=== PATIENT | male | born 1940 | race Two or more races ===

== ENCOUNTER 2018-06-27 16:00 | Emergency (ER) | payer OTHER ==
[~2018-06-27] VITALS: Ht 172.7 cm; Wt 67.6 kg
[~2018-06-27 16:00] MED LIST: BONIVA; PROZAC20 MG PO; SYNTHROID75 MCG PO
[2018-06-27] MEDS ORDERED: SIMVASTATIN20 MG PO (16:15)
[2018-06-27] MEDS ORDERED: NEURIN SL PO (16:15)
[2018-06-27] MEDS ORDERED: PLAVIX75 MG PO (16:16)
[2018-06-27] MEDS ORDERED: ASA81 MG PO (16:16)
== END 2018-06-27 19:07 | disposition home or self-care (01) ==
LOC: ER 16:00
DX: R42 Dizziness and giddiness (principal)

== ENCOUNTER 2023-03-15 10:53 | Emergency (ER) | payer OTHER ==
[~2023-03-15] VITALS: Ht 152.4 cm; Wt 63.5 kg
[~2023-03-15 10:53] MED LIST changes: +ASA81 MG PO; +NEURIN SL PO; +PLAVIX75 MG PO; +SIMVASTATIN20 MG PO
== END 2023-03-15 15:01 | disposition home or self-care (01) ==
LOC: ER 10:53
PROVIDERS: General Practice
DX: R21 Rash and other nonspecific skin eruption (principal); I10 Essential (primary) hypertension; Z91.018 Allergy to other foods